=== PATIENT | female | born 1975 | race Two or more races ===

== ENCOUNTER 2023-02-25 12:26 | Emergency (ER) | payer MEDICAID, OTHER ==
[~2023-02-25] VITALS: Ht 162.6 cm; Wt 134.5 kg
[2023-02-25 12:49] VITALS: BP 141/97; PULSE 104; RESP 18; O2SAT 97
[2023-02-25 13:16] LABS: Urine Bacteria MOD /hpf (None Seen); Urine Blood Negative /uL (Negative); Urine Mucus FEW (None Seen); Urine Specific Gravity 1.026 (1.001-1.035); Urine WBC 2 /hpf (0 - 5)
== END 2023-02-25 17:32 | disposition left against medical advice (07) ==
LOC: ER 12:26
DX: R10.10 Upper abdominal pain, unspecified (principal); Z53.21 Procedure and treatment not carried out due to patient leaving prior to being seen by health care provider
CPT/HCPCS: 81001